=== PATIENT | female | born 1955 | race Caucasian/White ===

== ENCOUNTER 2018-04-04 12:23 | Emergency (ER) | payer BC ==
--- NOTE | 2018-04-04 12:27 | PDOC ---
History of Present Illness - General Chief Complaint: Injury Stated Complaint: FALL Time Seen by Provider: 04/04/18 12:26 - History of Present Illness Initial Comments: 04/04/18 12:56 The patient is a 62 year old female with a history of HTN, HLD, IDDM, GERD who presents for evaluation following a fall. The patient reports that she was at a grocery store when she tripped on a rug and fell landing on her right knee with pain. She denies head trauma or LOC and denies any other injuries besides pain in her right knee. She has not ambulated on the knee since then. On EMS arrival the patient's blood sugar was in the 400s as well. The patient otherwise denies fevers, chills, SOB, chest pain, nausea, vomiting, abdominal pain, numbness, tingling, weakness, or changes with urination or bowel movements. Past History - Past Medical History Allergies/Adverse Reactions: Allergies Allergy/AdvReac Type Severity Reaction Status Date / Time egg Allergy Verified 04/04/18 12:35 Penicillins Allergy Verified 04/04/18 12:33 shrimp Allergy Verified 04/04/18 12:34 Home Medications: Ambulatory Orders Atorvastatin Ca [Lipitor] 20 mg PO HS 04/04/18 Glyburide [Diabeta -] 10 mg PO BID 04/04/18 Insulin (Novolog 70/30) [Novolog Mix 70/30 Vial] 44 ml SQ AM 04/04/18 Insulin (Novolog 70/30) [Novolog Mix 70/30 Vial] 68 ml SQ HS 04/04/18 Insulin Sliding Scale [Novolog Vial Sliding Scale -] 18 units SQ TIDAC 04/04/18 Levothyroxine [Synthroid -] 100 mcg PO DAILY 04/04/18 Losartan Potassium 100 mg PO DAILY 04/04/18 Metoprolol Succinate 25 mg PO DAILY 04/04/18 Omeprazole 40 mg PO DAILY 04/04/18 Review of Systems - Review of Systems Comments:: 04/04/18 13:00 Constitutional: No fevers, chills, fatigue, malaise HEENT: No Rhinorrhea, nasal congestion, visual changes Cardiovascular: No chest pain, syncope, palpitations, lightheadedness Respiratory: No Cough, SOB, Hemoptysis, Gastrointestinal: No Abdominal pain, Nausea, Vomiting, Constipation, Diarrhea, Melena Genitourinary: No Dysuria, Frequency, Urgency, Hesitancy, Hematuria, Flank pain Musculoskeletal: Right knee pain. No Myalgia, arthralgia Skin: No rashes, itching, bruising, pallor Neurologic: No Headache, Dizziness, Numbness, Weakness, or Tingling Psychiatric: No Hallucinations. No SI or HI *Physical Exam - Physical Exam Comments: 04/04/18 13:00 General Appearance: Nourished. No Apparent Distress HEENT: No Pharyngeal Erythema, Tonsillar Exudate, Tonsillar Erythema Neck: No Cervical Lymphadenopathy Respiratory/Chest: Lungs Clear, Normal Breath Sounds. No Crackles, Rales, Rhonchi, Wheezing Cardiovascular: Regular Rhythm, Regular Rate. No Murmur, Gallops, Rubs Gastrointestinal/Abdominal: Normal Bowel Sounds, Soft. No Guarding, Rebound, Tenderness Musculoskeletal: No CVA Tenderness Extremity: Tenderness to palpation over the right patella and proximal tibia. Full ROM with pain with ranging. No joint instability noted. Sensation to light touch and temperature intact distally. 2+ dp pulses. Normal Capillary Refill Integumentary: Normal Color, Dry, Warm Neurologic: Fully Oriented, Alert, Normal Mood/Affect, Normal Response, ED Treatment Course - LABORATORY CBC & Chemistry Diagram: 04/04/18 13:15 04/04/18 13:15 Medical Decision Making - Medical Decision Making 04/04/18 13:02 The patient is a 62 year old female with a history of HTN, HLD, IDDM, GERD who presents for evaluation following a fall. Differential includes but is not limited to: Fracture, Contusion, Infectious, Metabolic Derangement. Given the patient's elevated blood sugars, we will obtain a cbc, cmp, vbg, acetone, ua to evaluate further. Given the patient's right knee pain we will obtain plain films to evaluate for fracture or dislocation. We will treat with tylenol in the meantime and continue to monitor and reassess while here in the ED. 04/04/18 14:02 CBC, cmp, vbg, acetone are unremarkable. Patient's blood sugar is 295. UA is unremarkable. Plain films of the patient's knee are unremarkable. The patient was able to bear weight with improvement in her pain. We are comfortable discharging the patient home with ortho and primary care provider follow up. We discussed the results, plan, and return precautions with the patient who voiced understanding and is agreeable with the plan. *DC/Admit/Observation/Transfer Diagnosis at time of Disposition: Hyperglycemia Knee pain, right Qualifiers: Chronicity: acute Qualified Code(s): M25.561 - Pain in right knee - Discharge Dispostion Disposition: HOME Condition at time of disposition: Stable Decision to Admit order: No - Referrals Referrals: Chai Schmidt MD [Staff Physician] - - Patient Instructions Printed Discharge Instructions: DI for Hyperglycemia -- Adult, DI for Knee Pain Additional Instructions: Please return to the ER if you experience concerning or worsening symptoms including worsening difficulty breathing, weakness, or chest pain. You may use tylenol and ibuprofen at home to help manage your pain. Your lab results and X-rays were normal here in the ER. Please call to schedule a follow up appointment with your primary care provider and our home care specialist within 2-3 days to discuss your ER visit and further management of your symptoms. - Post Discharge Activity
[2018-04-04] MEDS ORDERED: ACETAMINOPHEN 500 MG TABLET (FP) PO ONE (12:34)
[2018-04-04 12:38] VITALS: BP 166/62; PULSE 71; TEMP 97.8; BMI 40.0
[2018-04-04] MEDS ORDERED: ACETAMINOPHEN 325 MG TABLET (FP) ONE (12:40)
[2018-04-04 13:24] LABS: BASO % 0.7 % (0-2.0); EOS % 2.7 % (0-4.5); HEMATOCRIT 40.2 % (32.4-45.2); HEMOGLOBIN 13.4 GM/dL (10.7-15.3); LYMPH % 24.8 % (8-40); MCH 29.1 pg (25.7-33.7); MCHC 33.4 g/dl (32.0-36.0); MEAN CELL VOLUME 87.2 fl (80-96); MEAN PLT VOLUME 11.1 fl (7.5-11.1); MONO % 5.7 % (3.8-10.2); NEUT % 66.1 % (42.8-82.8); PLATELET COUNT 228 K/MM3 (134-434); RBC 4.61 M/mm3 (3.60-5.2); RDW 13.9 % (11.6-15.6); WHITE BLOOD COUNT 8.6 K/mm3 (4.0-10.0)
[2018-04-04 13:26] LABS: URINE APPEARANCE CLEAR; URINE BILIRUBIN NEGATIVE (<2.0 mg/dL); URINE COLOR STRAW; URINE GLUCOSE (UA) 3+ (NEGATIVE); URINE KETONE NEGATIVE (NEGATIVE); URINE LEUK ESTERASE NEGATIVE (NEGATIVE); URINE NITRITE NEGATIVE (NEGATIVE); URINE PROTEIN NEGATIVE (NEGATIVE); URINE UROBILINOGEN NEGATIVE mg/dL (0.2-1.0)
[2018-04-04 13:26] LABS: VENOUS PC02 56.1 mmHg (38-52); VENOUS PH 7.33 (7.32-7.42); VENOUS PO2 33.8 mmHg (28-48)
--- NOTE | 2018-04-04 13:32 | PDOC ---
Attending Attestation - Resident Resident Name: Darrick Livingston - ED Attending Attestation I have performed the following: I have examined & evaluated the patient, The case was reviewed & discussed with the resident, I agree w/resident's findings & plan, Exceptions are as noted - HPI HPI: 04/04/18 13:30 62y F IDDM, HTN, HL, GERD presents sp fall, was wakling in grocery store and tripped on a carpet and landed on her L knee. The pt denies any head injury/ trauma, neck pain,b ack pain, extermity pain. EMS was called and found that she had a BGM in the 400s. She immediately took her usual insulin afterwrds. she notes her bgm normally runsin the 1-200s. She last ate around 930 and hadnt checked her bgm sincet he morning (when i twas in the 200s. The pt denies any syncope, dizziness, cp, sob, abd pain dysuria, frequency, diarrhea, melena, diaphoresis. pt denies any hip pain, notes mild knee pain. - Physicial Exam PE: 04/04/18 15:20 GENERAL: The patient is awake, alert, and fully oriented, Nontoxic - in no acute distress. HEAD: Normocephalic, atraumatic. ABDOMEN: Soft, nontender, normoactive bowel sounds. No guarding, no rebound. No CVA tenderness EXTREMITIES: Normal range of motion, mild ttp to patella/prox tibia NEUROLOGICAL: No facial assymetry, Normal speech, PSYCH: Normal mood, normal affect. SKIN: Warm, Dry, normal turgor, - Medical Decision Making 04/04/18 15:32 xray neg for fx, pt able to weight bear lab work unremarkble, bgm significantly improved will dc with pmd fu return precautios were discussed
[2018-04-04 13:43] LABS: ALBUMIN 3.5 g/dl (3.4-5.0); ALK PHOS 193 U/L (45-117); ANION GAP 5 MMOL/L (8-16); BILIRUBIN,TOTAL 0.3 mg/dL (0.2-1); BLOOD UREA NITROGEN 15 mg/dL (7-18); CALCIUM 9.1 mg/dL (8.5-10.1); CHLORIDE 107 mmol/L (98-107); CO2 29 mmol/L (21-32); CREATININE 1.1 mg/dL (0.55-1.3); GLUCOSE,RANDOM 296 mg/dL (74-106); POTASSIUM 4.7 mmol/L (3.5-5.1); SGOT/AST 25 U/L (15-37); SGPT/ALT 41 U/L (13-61); SODIUM 141 mmol/L (136-145); TOT PROT 6.6 g/dl (6.4-8.2)
== END 2018-04-04 15:21 | disposition home or self-care (01) ==
LOC: JER 12:23
DX: M25.561 Pain in right knee (principal); E11.65 Type 2 diabetes mellitus with hyperglycemia; Z79.4 Long term (current) use of insulin; I10 Essential (primary) hypertension; E78.00 Pure hypercholesterolemia, unspecified; E03.9 Hypothyroidism, unspecified; W18.39XA Other fall on same level, initial encounter; Y93.89 Activity, other specified; Y92.512 Supermarket, store or market as the place of occurrence of the external cause; Y99.8 Other external cause status; K21.9 Gastro-esophageal reflux disease without esophagitis
CPT/HCPCS: 36415; 73562-TC-RT-FY; 80053; 81003; 82009; 82803; 85025; 99282-25